=== PATIENT | female | born 1940 | race Caucasian/White ===

== ENCOUNTER 2020-08-04 10:17 | Emergency (ER) | payer MEDICARE, OTHER, SELFPAY ==
[2020-08-04 10:45] VITALS: BP 125/64; PULSE 68; RESP 16; TEMP 36.8; O2SAT 100
--- NOTE | 2020-08-04 11:12 | ED.URI ---
HPI - URI/Sore Throat General Chief Complaint: Upper Respiratory Infection Stated Complaint: cough/weakness/drainage Source: patient and RN notes reviewed Limitations: no limitations History of Present Illness HPI Narrative: The patient-- a non-smoker/nondrinker, on several meds inc AODM, here with family members who are also unwell-- presents with cough & congestion. Patient states she has over 1 week history of clear/nonproductive cough, postnasal drip, and congestion. No fever, CP, loss of taste, S OB, vomiting/diarrhea/dehydration, wheezing/sneezing. They have completed their Covid vaccine, the last 2 weeks ago. Rapid testing for influenza and Covid is negative ['s chest x-ray is also negative.] Related Data Home Medications Medication Instructions Recorded Confirmed Calcium 600 + D(3) 05/16/19 Travatan Z 05/16/19 anastrozole 1 mg PO DAILY 05/16/19 05/16/19 aspirin 81 mg PO DAILY 05/16/19 05/16/19 brimonidine [Alphagan P] 05/16/19 dorzolamide 05/16/19 glipizide 5 mg PO DAILY 05/16/19 05/16/19 irbesartan 150 mg PO DAILY 05/16/19 05/16/19 giglqmiz-mup-TO-lycopen-lutein 1 tablet PO DAILY 05/16/19 05/16/19 [Centrum Silver] sertraline 50 mg PO DAILY 05/16/19 05/16/19 simvastatin 40 mg PO DAILY 05/16/19 05/16/19 sitagliptin [Januvia] 100 mg PO DAILY 05/16/19 05/16/19 tramadol mg 05/16/19 amlodipine 08/04/20 Allergies Allergy/AdvReac Type Severity Reaction Status Date / Time No Known Allergies Allergy Verified 05/16/19 15:19 Review of Systems Review of Systems: Narrative: General/Constitutional: No weight loss,fever Eyes: N0: Redness,discharge Ears/Nose/Throat: No: Epistaxis,ear discharge Respiratory: Denies: Hemoptysis Gastrointestinal: No Vomiting, Bleeding-rectal Skin: No Lumps, eruption Neurologic: No Focal Weakness,Sz Hematologic: Denies: Petechiae/Purpura Psychiatric: No: Suicida ideationl All Other Systems: Reviewed and Negative [facility] Past Medical History Medical History (Updated 08/04/20 @ 11:38 by Demetri Diaz MD) Cataracts, bilateral CVA (cerebrovascular accident) Depression Glaucoma Hyperlipidemia Hypertension Sciatica Surgical History Surgical History (Updated 05/18/19 @ 08:18 by Daija Kilgore NP) H/O: hysterectomy History of lumpectomy of left breast Social History Social History (Updated 05/18/19 @ 08:19 by Daija Kilgore NP) Smoking status: Never smoker Gender identity (if verbalized by the patient): Female Comments At time of signature, agree with nursing past medical, surgical, social and family history. There is no relevant family history pertinent to the presenting complaint Exam Narrative: Exam Narrative: General Appearance: Well appearing, Well nourished EYE: PERRLA, Conjunctiva clear Ears: Auditory canal normal, TM normal Nose: Rhinorrhea, Mucousal erythema Mouth/Throat: MM moist, Uvula midline, Pharyngeal erythema Neck: Supple, No adenopathy Respiratory: No respiratory distress, Breath sounds equal, Clear to auscultation Cardiovascular: RRR, No JVD Musculoskeletal: Normal strength Skin: Warm, Dry Neurological: A&O x3, CN II-XII intact Psychiatric: Normal mood, Normal affect Course Vital Signs Vital signs: Vital Signs Temperature 98.3 F 08/04/20 10:45 Pulse Rate 68 08/04/20 10:45 Respiratory Rate 16 08/04/20 10:45 Blood Pressure 125/64 08/04/20 10:45 Pulse Oximetry 100 08/04/20 10:45 Temperature 98.3 F 08/04/20 10:45 Pulse Rate 68 08/04/20 10:45 Respiratory Rate 16 08/04/20 10:45 Blood Pressure 125/64 08/04/20 10:45 Pulse Oximetry 100 08/04/20 10:45 MDM - URI/Sore Throat Lab Data Labs: Lab Results 08/04/20 Range/Units 10:37 POC SARS CoV-2 Ag Negative (Negative) Influenza A Screen Negative Reference Range: Negative Influenza B Screen Negative
== END 2020-08-04 11:48 | disposition home or self-care (01) ==
PROVIDERS: Emergency Provider Emergency Medicine; PCP Internal Medicine
DX: J32.9 Chronic sinusitis, unspecified (principal); J40 Bronchitis, not specified as acute or chronic; Z20.822 Contact with and (suspected) exposure to COVID-19; H26.9 Unspecified cataract; Z86.73 Personal history of transient ischemic attack (TIA), and cerebral infarction without residual deficits; F32.9 Major depressive disorder, single episode, unspecified; H40.9 Unspecified glaucoma; E78.5 Hyperlipidemia, unspecified; I10 Essential (primary) hypertension
CPT/HCPCS: 87426; 87804; 99213; C9803; G0463